=== PATIENT | female | born 1945 | race Caucasian/White ===

== ENCOUNTER 2021-10-15 05:30 | Inpatient (IN) | payer MEDICARE, OTHER ==
[2021-10-08 14:59] LABS: BASOPHILS % (AUTO) 1.3 % (0-1); EOSINOPHILS # (AUTO) 0.1 X10'3 (0-0.9); EOSINOPHILS % (AUTO) 3.9 % (0-6); LYMPHOCYTES % (AUTO) 28.3 % (21-51); MEAN CORPUSCULAR HEMOGLOBIN 29.3 PG (27.0-31.0); MEAN CORPUSCULAR HGB CONC 32.2 g/dL (33.0-36.5); MEAN CORPUSCULAR VOLUME 90.9 FL (78-98); MEAN PLATELET VOLUME 7.3 FL (7.4-10.4); MONOCYTES # (AUTO) 0.3 X10'3 (0-0.9); NEUTROPHILS # (AUTO) 2.2 X10'3 (1.8-7.7); NEUTROPHILS % (AUTO) 58.5 % (42-75); PRE OP HEMOGLOBIN 12.9 g/dL (12.0-16.0); PRE OP PLATELET COUNT 154 X10'3 (140-440); RED CELL DISTRIBUTION WIDTH 13.8 % (11.5-14.5)
[2021-10-08 15:12] LABS: PRE OP INR 1.1 INR; PRE OP PROTIME 10.9 SECONDS (9.0-12.0)
[2021-10-08 15:26] LABS: ALBUMIN 3.4 G/DL (3.4-5.0); ALBUMIN/GLOBULIN RATIO 1.1 (1.1-1.5); ALKALINE PHOSPHATASE 74 IU/L (46-116); BLOOD UREA NITROGEN 10 MG/DL (7-18); BUN/CREATININE RATIO 16.1 (6.6-38.0); CALCIUM 8.2 MG/DL (8.5-10.1); CHLORIDE 106 MMOL/L (99-107); CREATININE 0.62 MG/DL (0.40-0.90); PRE OP ALT 31 U/L (30-65); PRE OP ANION GAP 7 (8-16); PRE OP AST 29 U/L (10-37); PRE OP BILIRUB, TOTAL 0.3 MG/DL (0.0-1.0); PRE OP GLUCOSE 86 MG/DL (70-104); PRE OP SODIUM 141 MMOL/L (135-145); TOTAL PROTEIN 6.5 G/DL (6.4-8.2); eGFR > 90 ML/MIN
[2021-10-15] VITALS (23 sets, daily range): BP systolic 103–137; BP diastolic 51–82
[~2021-10-15] VITALS: Ht 154.9 cm; Wt 49.1 kg
[~2021-10-15 05:30] MED LIST: ASPI-1071 PO; ATOR10TA PO; BISA-155 PO; GABA300C PO; GENTLE LAX; MELA10TA PO; MULT-1085 PO; PARO20TA6 PO; TIZA4CAP PO; acetaminophen 325mg tablet PO ONE; ceFAZolin inj. 2,000 MG in dextrose 5%-water 100 ML IV ONE; celeCOXIB 100mg capsule PO ONE; famotidine 20mg tablet PO ONE; gabapentin 300mg capsule PO ONE; metoclopramide 5 mg/ml inj IV ONE; oxyCODONE SR 10mg (sust. release) tab -2 tabs (20mg) PO ONE; tranexamic acid inj. 1,000 MG in normal saline 100ml IV soln 100 ML IV ONE; vancomycin/NS 1 GM in NS 250 ML IV ONE
--- NOTE | 2021-10-15 06:00 | NUR ---
CSMS INTACT TO BILAT FEET. PULSES TO LEFT FOOT WNL AND MARKED. PT SHOWERED X 5 WITH HIBICLEANS. PT STATES SHE WATCHED THE JOINT CARE DVD AND DOES NOT HAVE ANY QUESTIONS. PT DID NOT USE BACTOBAN OINT DR CRUZ OFFICE DID NOT CALL RX IN
[2021-10-15] MEDS ORDERED: naloxone 0.4 mg/ml inj IV PRN (06:25)
[2021-10-15] MEDS ORDERED: diphenhydrAMINE 25mg capsule PO PRN ×2 (06:25)
[2021-10-15] MEDS ORDERED: HYDROmorphone inj. 0.5 MG/0.5 ML DISP.SYRIN IV PRN (06:25)
[2021-10-15] MEDS ORDERED: ondansetron/PF 4mg/2ml inj IV PRN ×2 (06:25→07:05)
[2021-10-15] MEDS ORDERED: acetaminophen 325mg tablet PO PRN (06:25)
[2021-10-15] MEDS ORDERED: bisacodyl 10mg suppository rectal RC PRN (06:25)
[2021-10-15] MEDS ORDERED: tranexamic acid inj. 1,000 MG in normal saline 100ml IV soln 90 ML IV ONE ×2 (06:25→15:00)
[2021-10-15] MEDS ORDERED: HYDROmorphone 1 mg/ml syringe IV PRN (06:25)
[2021-10-15] MEDS ORDERED: magnesium hydroxide 30ml (MOM) UD suspension PO PRN (06:25)
[2021-10-15] MEDS ORDERED: HYDROcodone/acetaminophen 10/325mg tab PO PRN (06:25)
[2021-10-15] MEDS: ringers solution, lacted 1,000 ML IV SCH ×2 (06:29→11:10)
[2021-10-15] MEDS ORDERED: ketorolac trometh. 30mg/ml inj. ONE (06:46)
[2021-10-15] MEDS ORDERED: cloNIDine hcl/PF 100mcg/ml inj ONE (06:46)
[2021-10-15] MEDS ORDERED: epiNEPHrine 1 mg/ml inj ONE (06:46)
[2021-10-15] MEDS ORDERED: tranexamic acid 100mg/ml inj. ONE (06:46)
[2021-10-15] MEDS ORDERED: vancomycin 1,000mg inj ONE (06:46)
[2021-10-15] MEDS ORDERED: ROPIVAcaine 0.5% (5mg/ml) 30ml vial ONE (06:47)
[2021-10-15] MEDS ORDERED: fentaNYL/PF 50MCG/1 ML 2ML syringe ONE (07:00)
[2021-10-15] MEDS ORDERED: MIDAZolam 1mg/ml 10ml vial ONE (07:00)
[2021-10-15] MEDS ORDERED: hydrALAZINE 20mg/ml inj. IV PRN (07:05)
[2021-10-15] MEDS ORDERED: ringers solution, lacted 1,000 ML IV SCH (07:05)
[2021-10-15] MEDS ORDERED: labetalol 20mg/4ml (5mg/ml) syringe IV PRN (07:05)
[2021-10-15] MEDS ORDERED: fentaNYL/PF 50MCG/1 ML 2ML syringe IV PRN ×2 (07:05)
[2021-10-15] MEDS ORDERED: morphine 2 MG/ML inj. syringe IV PRN (07:05)
[2021-10-15] MEDS ORDERED: morphine 4 MG/ML inj SYRINge IV PRN (07:05)
[2021-10-15] MEDS ORDERED: phenylephrine 10mg/ml inj. ONE (07:53)
[2021-10-15] MEDS: gabapentin 300mg capsule PO SCH ×3 (08:00→20:42)
[2021-10-15] MEDS: ascorbic acid 500mg tablet PO SCH ×2 (08:00→20:42)
[2021-10-15] MEDS: ceFAZolin/D5W- 1GM premix 50 ML IV SCH ×2 (08:00→17:47)
[2021-10-15] MEDS ORDERED: vancomycin/NS 1 GM ADD-VANTAGE 250 ML IV SCH (08:00)
[2021-10-15] MEDS: multivitamins, therapeutics tablet PO SCH (08:00)
[2021-10-15] MEDS: aspirin 325mg tablet PO SCH (08:30)
--- NOTE | 2021-10-15 08:41 | NUR ---
Received from OR via SURGICAL BED , accompanied by Anesthesiologist TOMMY and report given by Anesthesiolgist. PATIENT WITH 20G PIV IN LEFT UE RUNING LR AT 100. DENIES PAIN AT THIS TIME. PATIENT WITH LEFT HIP DRESSING THAT IS CDI AND HAS A ROSA VAC. VSS AT THIS TIME. 100% SATURATIONS WITH 10L MASK.+ DP AND POSTERIOR TIB. Addendum: 10/15/21 at 0857 by Jean Marie Dunlap RN, RN Amended: Links added.
--- NOTE | 2021-10-15 10:07 | NUR ---
Received from OR via ORTHO BED , accompanied by Anesthesiologist BANDAR and report given by Anesthesiolgist. PATIENT WITH 20G PIVIN LEFT ARM. VSS, DENIES PAIN AT THIS TIME 2' SPINAL ANESTHESIA. T11 SENSATION FOR SPINAL ANESTHESIA. SCDS DONNED. LEFT KNEE WRAP AND POWDER PACK PRESENT WELL NERVE BLOCK SITE TO LEFT THIGH AREA. +DP.
--- NOTE | 2021-10-15 10:31 | NUR ---
PATIENT HAS MET ALL CRITERIA FOR TRANSFER TO THE SURGICAL/PAVEL/PCU/ORTHO/ICU FLOOR. VSS. DRESSINGS INTACT. BED LOW, CALL LIGHT PRESENT AND 2 RAILS UP. RN PRESENT TO ACCEPT CARE OF PATIENT AND REPORT HAS BEEN CALLED. PALL QUESTIONS ANSWERED TO ACCEPTING RN. DAUGHTER PICKED UP FROM WAITING ROOM AND ACCOMPANIED TO THE 4TH FLOOR. VSS. Addendum: 10/15/21 at 1046 by Jean Marie Argueta - ANALY RN Amended: Links added.
[2021-10-15] MEDS ORDERED: tizanidine 4mg tablet PO PRN (11:35)
[2021-10-15] MEDS ORDERED: gabapentin 300mg capsule PO PRN (11:35)
[2021-10-15] MEDS ORDERED: Melatonin 3mg tablet PO PRN (11:35)
[2021-10-15] MEDS: potassium cl 20mEq in 1/2 NS 1,000 ML IV SCH ×3 (12:45→22:20)
[2021-10-15] MEDS: HYDROcodone/acetaminophen 10/325mg tab PO PRN ×2 (16:52→20:48)
--- NOTE | 2021-10-15 18:43 | NUR ---
Patient in room ORTHO 4014. I have received report from ANALY Tineo and had the opportunity to ask questions and assume patient care.
[2021-10-15] MEDS ORDERED: sennosides 8.6mg tablet PO SCH (21:00)
[2021-10-15] MEDS: bisacodyl 5mg tablet.DR PO SCH (21:09)
[2021-10-16] MEDS: HYDROcodone/acetaminophen 10/325mg tab PO PRN ×2 (00:52→05:01)
[2021-10-16 06:00] VITALS: BP 138/68
--- NOTE | 2021-10-16 06:12 | NUR ---
Problems reprioritized. Patient report given, questions answered & plan of care reviewed with ANALY Evans.
[2021-10-16 07:12] LABS: BASOPHILS % (AUTO) 0.9 % (0-1); EOSINOPHILS # (AUTO) 0.2 X10'3 (0-0.9); EOSINOPHILS % (AUTO) 6.4 % (0-6); HEMATOCRIT 37.8 % (35.0-45.0); HEMOGLOBIN 12.5 g/dl (12.0-16.0); LYMPHOCYTES # (AUTO) 0.7 X10'3 (1.1-4.8); LYMPHOCYTES % (AUTO) 24.6 % (21-51); MEAN CORPUSCULAR HEMOGLOBIN 30.2 PG (27.0-31.0); MEAN CORPUSCULAR HGB CONC 32.9 g/dL (33.0-36.5); MEAN CORPUSCULAR VOLUME 91.8 FL (78-98); MEAN PLATELET VOLUME 7.9 FL (7.4-10.4); MONOCYTES # (AUTO) 0.3 X10'3 (0-0.9); MONOCYTES % (AUTO) 9.6 % (2-12); NEUTROPHILS # (AUTO) 1.8 X10'3 (1.8-7.7); NEUTROPHILS % (AUTO) 58.5 % (42-75); PLATELET COUNT 123 X10'3 (140-440); RED BLOOD COUNT 4.12 X10'6 (4.20-5.60); RED CELL DISTRIBUTION WIDTH 13.8 % (11.5-14.5)
[2021-10-16 07:34] LABS: ELLIPTOCYTES FEW; PLATELET ESTIMATE DECREASED; TOTAL CELLS COUNTED 100
[2021-10-16] MEDS: ascorbic acid 500mg tablet PO SCH (07:35)
[2021-10-16] MEDS: multivitamins, therapeutics tablet PO SCH (07:35)
[2021-10-16] MEDS: gabapentin 300mg capsule PO SCH (07:35)
[2021-10-16] MEDS: aspirin 325mg tablet PO SCH (07:35)
[2021-10-16] MEDS: bisacodyl 5mg tablet.DR PO SCH (07:35)
[2021-10-16 07:45] LABS: ANION GAP 7 (8-16); CHLORIDE 108 MMOL/L (99-107); POTASSIUM 4.2 MMOL/L (3.5-5.1); SODIUM 140 MMOL/L (135-145); TOTAL CARBON DIOXIDE 24.9 MMOL/L (24-32)
[2021-10-16] MEDS ORDERED: non-formulary drug (Multivitamin (Multi Vitamin Daily) 1 TAB) PO SCH (08:00)
[2021-10-16] MEDS ORDERED: PARoxetine 20mg tablet PO SCH (08:00)
--- NOTE | 2021-10-16 08:49 | NUR ---
Discharge instructions given to patient. Patient verbalized understanding of all instructions given to her. Peripheral IV catheter removed, tip intact. Instructed patient to ensure she has all her belongings with her before leaving. An extra ROSA dressing was provided to the patient. Patient awaiting for her ride, her daughter will take her home.
--- NOTE | 2021-10-16 10:39 | NUR ---
Per patient, her daughter will be available to pick her up around noon time. Charge nurse Jailene was notified about delay in discharge.
--- NOTE | 2021-10-16 11:09 | NUR ---
Patient's daughter arrived taking patient home
--- NOTE | 2021-10-16 11:35 | NUR ---
Pt s/p left [facility]. Written protein education with RD contact information placed in patient's chart prior to discharge. Addendum: 10/16/21 at [address] Amended: Links added.
[2021-10-16] MEDS ORDERED: celeCOXIB 100mg capsule PO SCH (20:00)
== END 2021-10-16 11:10 | disposition home or self-care (01) | DRG 470 ==
LOC: PAS 05:30 → PAS IN 06:27 → ORTHO 4S 06:28
PROVIDERS: ADMIT Orthopaedic Surgery; ATTEND Orthopaedic Surgery
PROC: 3E0T3BZ Introduction of Anesthetic Agent into Peripheral Nerves and Plexi, Percutaneous Approach (ICD-10-PCS; 2021-10-15)
PROC: 0SRB06Z Replacement of Left Hip Joint with Oxidized Zirconium on Polyethylene Synthetic Substitute, Open Approach (ICD-10-PCS; principal; 2021-10-15 07:14)
DX: M16.12 Unilateral primary osteoarthritis, left hip (principal); Z20.822 Contact with and (suspected) exposure to COVID-19; M81.0 Age-related osteoporosis without current pathological fracture; Z79.82 Long term (current) use of aspirin
CPT/HCPCS: 36415; 72170; 80051; 80053; 82948; 85007; 85025; 85610; 85730; 86885; 86900; 86901; 87081; 97116; 97161; 97530; A7000; C1776; G0378; J0171; J0690; J0735; J1885; J2250; J2370; J2765; J2795; J3010; J3370; J3480; J3490; J7060; J7120; U0003; U0005